=== PATIENT | female | born 1945 | race Caucasian/White ===

== ENCOUNTER 2016-08-11 15:49 | Emergency (ER) | payer BC, MEDICARE ==
--- NOTE | 2016-08-11 16:02 | EDM.PDOC ---
ED HPI GENERAL MEDICAL PROBLEM - General Chief Complaint: Neuro Symptoms/Deficits Stated Complaint: [facility] Time Seen by Provider: 08/11/16 15:55 Source of Information: Reports: Patient, EMS Notes Reviewed, Family History Limitations: Reports: No Limitations - History of Present Illness INITIAL COMMENTS - FREE TEXT/NARRATIVE: 71-year-old female reports that she was at her place of work this afternoon when she suddenly developed symptoms in her left upper extremity where her fingers would not do their normal tasks and the arm lost its coordination. She would reach for her hair for example in miss completely or hit herself in the face. It's unclear she spoke anybody and had any change in speech. She denied any visual acuity changes. She felt that perhaps her left leg was a little weak and a little off balance for a period of time. [facility]. Once EMS got there she states her symptoms suddenly seemed to improve. Symptoms would've lasted a good hour to an hour and a quarter then. Her previous similar history of TIA or stroke. She denies headache or any recent falls or closed head injuries. Onset: Today Onset Date: 08/11/16 Onset Time: 14:00 Duration: Minutes:, Resolved Prior to Arrival Location: Reports: Upper Extremity, Left, Lower Extremity, Left Quality: Reports: Other Severity: Moderate (Weakness and clumsiness.) Improves with: Reports: Other Worsens with: Reports: None (Condition improves spontaneously over the last 15 minutes.) Context: Reports: Other (Was at work when symptoms developed.). 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 Denies: Fever, Chills, Malaise, Fatigue, Night Sweats, Diaphoresis ( initially but is now improved.), Decreased Appetite, Weight Loss, Weight Gain HEENT: Reports: No Symptoms Respiratory: Reports: No Symptoms Cardiovascular: Reports: No Symptoms Endocrine: Reports: No Symptoms GI/Abdominal: Reports: No Symptoms : Reports: No Symptoms Musculoskeletal: Reports: No Symptoms Skin: Reports: No Symptoms Neurological: Reports: No Symptoms Psychiatric: Reports: No Symptoms Hematologic/Lymphatic: Reports: No Symptoms Immunologic: Reports: No Symptoms ED EXAM, NEURO - Physical Exam Exam: See Below Exam Limited By: No Limitations General Appearance: Alert, WD/WN, No Apparent Distress Eye Exam: Bilateral Eye: Normal Inspection Throat/Mouth: Normal Inspection, Normal Lips, Normal Oropharynx Head Exam: Atraumatic, Normocephalic Neck: Normal Inspection, Supple, Non-Tender, Full Range of Motion, Limited Range of Motion Respiratory/Chest: No Respiratory Distress, Lungs Clear, Normal Breath Sounds, No Accessory Muscle Use Cardiovascular: Normal Peripheral Pulses, Regular Rate, Rhythm, No Edema, No Gallop, No Murmur GI/Abdominal: Normal Bowel Sounds, Soft, Non-Tender, No Organomegaly, No Distention Neurological: Alert, Normal Mood/Affect, Normal Dorsiflexion, CN II-XII Intact, Normal Plantar Flexion, Normal Gait, No Motor/Sensory Deficits, Oriented x 3, Other (Motor power and tone are equal in both upper and lower extremities.). No : Abnormal Finger to Nose DTR: 1+: Bicep (R), Bicep (L), Patella (R), Patella (L), Achilles (R), Achilles (L) Back Exam: Normal Inspection, Full Range of Motion Extremities: Normal Inspection, Normal Range of Motion, Non-Tender, No Pedal Edema, Normal Capillary Refill Psychiatric: Normal Affect, Normal Mood Skin Exam: Warm, Dry, Intact, Normal Color, No Rash EKG INTERPRETATION EKG Date: 08/11/16 Time: 16:20 Rhythm: NSR Rate (beats/min): 76 Friant: normal P-wave: enlarged (Consider left atrial hypertrophy) QRS: other (Q waves V1 to V3 compatible with an old anteroseptal myocardial infarction.) ST-T: other (T-wave flattening in 1 and inverted in aVL. Slight ST segment depression in lead V6) Course - Vital Signs Last Recorded V/S: Last Vital Signs Temp 36.1 C 08/11/16 15:58 Pulse 76 08/11/16 17:04 Resp 16 08/11/16 15:58 BP 193/102 H 08/11/16 17:04 Pulse Ox 98 08/11/16 15:58 - Orders/Labs/Meds Orders: Active Orders 24 hr Category Date Time Status EKG Documentation Completion [RC] STAT Care 08/11/16 16:03 Active Ang Head [CT] Stat Exams 08/11/16 16:36 Taken Ang Neck [CT] Stat Exams 08/11/16 16:37 Taken Chest 1V Frontal [CR] Stat Exams 08/11/16 16:03 Taken Head wo Cont [CT] Routine Exams 08/11/16 16:08 Taken Enalaprilat [Vasotec IV] Med 08/11/16 18:37 Once 1.25 mg IVPUSH ONETIME ONE Sodium Chloride 0.9% [Saline Flush] Med 08/11/16 17:16 Active 10 ml FLUSH ONETIME PRN Medication Orders Sodium Chloride (Saline Flush) 10 ml FLUSH ONETIME PRN PRN Reason: Keep Vein Open Last Admin: 08/11/16 17:27 Dose: 10 ml Labs: Laboratory Tests 08/11/16 08/11/16 08/11/16 Range/Units 16:27 16:27 16:27 WBC 6.88 (3.98-10.04) K/mm3 RBC 4.98 (3.98-5.22) M/mm3 Hgb 16.1 H (11.2-15.7) gm/L Hct 46.4 H (34.1-44.9) % MCV 93.2 (79.4-94.8) fl MCH 32.3 H (25.6-32.2) pg MCHC 34.7 (32.2-35.5) g/dl RDW Std Deviation 44.5 (36.4-46.3) fL Plt Count 220 (182-369) K/mm3 MPV 9.9 (9.4-12.3) fl Neutrophils % (Manual) 66 H (40-60) % Band Neutrophils % 0 (0-10) % Lymphocytes % (Manual) 31 (20-40) % Atypical Lymphs % 0 % Monocytes % (Manual) 2 (2-10) % Eosinophils % (Manual) 1 (0.7-5.8) % Basophils % (Manual) 0 L (0.1-1.2) Platelet Estimate Adequate RBC Morph Comment Normal PT 10.4 (8.0-13.0) SECONDS INR 0.96 Sodium 140 (136-145) mEq/L Potassium 3.8 (3.5-5.1) mEq/L Chloride 104 (98-107) mEq/L Carbon Dioxide 26 (21-32) mEq/L Anion Gap 13.8 (5-15) BUN 19 H (7-18) mg/dL Creatinine 0.6 (0.55-1.02) mg/dL Est Cr Clr Drug Dosing 59.98 mL/min Estimated GFR (MDRD) > 60 (>60) mL/min BUN/Creatinine Ratio 31.7 H (14-18) Glucose 102 (83-115) mg/dL Calcium 8.9 (8.5-10.1) mg/dL Total Bilirubin 0.5 (0.2-1.0) mg/dL AST 26 (15-37) U/L ALT 46 (14-59) U/L Alkaline Phosphatase 84 (46-116) U/L Total Protein 7.8 (6.4-8.2) g/dl Albumin 4.1 (3.4-5.0) g/dl Globulin 3.7 gm/dL Albumin/Globulin Ratio 1.1 (1-2) Triglycerides 99 (<150) mg/dL Cholesterol 183 (<200) mg/dL LDL Cholesterol Direct 101 H* (<100) mg/dL HDL Cholesterol 71.0 H (40-59) mg/dL Meds: Medications Generic Name Dose Route Start Last Admin Trade Name Freq PRN Reason Stop Dose Admin Sodium Chloride 10 ml 08/11/16 17:16 08/11/16 17:27 Saline Flush FLUSH 10 ml ONETIME PRN Administration Keep Vein Open Discontinued Medications Generic Name Dose Route Start Last Admin Trade Name Freq PRN Reason Stop Dose Admin Aspirin 324 mg 08/11/16 16:35 08/11/16 16:39 Aspirin PO 08/11/16 16:36 324 mg ONETIME ONE Administration Iopamidol 100 ml 08/11/16 17:15 08/11/16 17:27 Isovue-370 (76%) IVPUSH 08/11/16 17:16 100 ml ONETIME ONE Administration Labetalol HCl 20 mg 08/11/16 16:49 08/11/16 17:04 Normodyne IVPUSH 08/11/16 16:50 20 mg ONETIME ONE Administration Protocol - Radiology Interpretation Free Text/Narrative:: 71-year-old female arrives in the ED program onset after [facility] symptoms. Patient reports that she was at work and suddenly noticed that her left hand would not work normally and that she had lost some coordination of her left arm as well. She then appreciated that the left leg was a little weak as well and seemed to be heavy-like piece of wood. It wouldn't listen to what she wanted to do. She denies any headache nausea vomiting no recent falls or closed head injuries. No history of stroke. Reveals her to be in sinus rhythm. Her symptoms resolved completely about 15 minutes before arriving in the ED. she is not a diabetic. She has no carotid bruits. She is in sinus rhythm. Neuro exam now is completely normal. Plan CT had to be done. Blood pressures noted to be markedly elevated upon arrival at 198/97. Will watch and see if this calms down with time.. Routine labs including cholesterol status ordered. - Re-Assessments/Exams Free Text/Narrative Re-Assessment/Exam: 08/11/16 16:40 CT of the head is within normal limits. Patient was up to the bathroom and feels no change in her gait or feeling of off balance. She will be given aspirin 324 mg chewed now. Plan to go ahead now with CT angiogram of the head and neck. 08/11/16 16:50 blood pressure remains elevated. Currently 200/98. It appears that she likely does have some essential hypertension that is thought not been diagnosed. Will give labetalol 20 mg IV. 08/11/16 18:37 blood pressure is improved to 167/88. I'm going to give her Vasotec or enalapril 1.25 mg IV now. Creatinine is 0.6 and her potassium is fine. In fact the labs are all normal with a total white count of 6.88 hemoglobin of 16.1 hematocrit of 46.4 platelets 220,000. Sodium 140 potassium 3.8. Portable 4 bicarbonate 26. And a gap is 13.6. Creatinine was 0.6. Coags are normal. LDL is 101 HDL is 71. She does not have a cholesterol problem. Her blood pressure may well cause some of her current symptoms today although she will still need to have an echocardiogram as an outpatient and bilateral ultrasounds of her carotid arteries. He has a rim of the neck shows calcification of plaque at the carotid bifurcations bilaterally left greater than the right. No significant carotid artery stenosis is identified in the vertebral arteries are patent bilaterally. CT CT angiogram of the brain reveals the circus of [place] to be unremarkable the anterior middle and posterior cerebral arteries are all patent bilaterally the distal vertebral and basilar arteries were patent as well. No aneurysms identified. 08/11/16 18:53 spoke with patient and at length about the findings today. It appears that she has essential hypertension that has gone on no distant untreated because she doesn't follow up with doctors very often. She has no family practice physician in town. I will therefore recommend Dr. Kellogg. I will have her make an appointment for about 2 weeks time so that her blood pressure can be assessed. I've asked her to have her blood pressure checked outside of the hospital setting and write the numbers down in the time and date over the next few weeks as well. I plan is to place her on amlodipine 10 mg once daily with lisinopril 10 mg once daily. It's hard to know how much of her hypertension today was generated by adrenaline and being scared of possible CVA. She needs a carotid ultrasound as an outpatient and an echocardiogram. First dose of amlodipine will be given by mouth in the hospital [facility]. Other meds will be started tomorrow morning. She will use 325 mg Rick aspirin twice daily for the next 3 weeks and then cut it down to 81 mg once daily. Departure - Departure Time of Disposition: 19:30 Disposition: Home, Self-Care 01 Condition: fair Clinical Impression: Uncontrolled hypertension TIA (transient ischemic attack) Qualifiers: Transient cerebral ischemia type: carotid artery syndrome (hemispheric) Qualified Code(s): G45.1 - Carotid artery syndrome (hemispheric) - Discharge Information Prescriptions: Lisinopril 10 mg PO DAILY #30 tablet amLODIPine [Norvasc] 10 mg PO BEDTIME #30 tablet Additional Instructions: Evaluation in the emergency department today in regards to development of acute weakness and clumsiness of the left arm and hand and probably mildly affecting the left leg. Somewhat occurred while is in the workplace. Symptoms lasted well over an hour and 15 minutes. They had resolved before you came to the ED as the neural exam then was completely normal. This indicates a transient ischemic attack or mild stroke. Complete investigations revealed no abnormalities of your heart. CT of the brain was normal CT angiogram done of the neck and brain revealed no abnormalities within the arterial system to deliver some blood to the brain. The one finding that stuck out was markedly elevated blood pressure at greater than 205 initially over 98. It is highly suspect that her blood pressure has gradually gone up over the last 6 months or year and has gone undiagnosed. Elevated blood pressure especially on the top number is on a huge risk factor for stroke development. You were treated in the ED with labetalol 20 mg IV and then subsequently Vasotec 1.25 mg IV. There also given amlodipine 10 mg orally before you were discharged. He needs to take a full Harshal's aspirin 325 mg twice daily for the next 3 weeks. You were given the first dose in the emergency department but should take 1 before bed tonight as well. After this 3 weeks or up you made cut back to 81 mg or baby aspirin once daily. Suggest follow-up with Dr. Kellogg at the family medicine unit in the hospital. The number to call is [phone] to arrange an appointment with him in about 2 weeks' time. Your blood pressure checked outside the hospital as we discussed and write down the date and time of day and the numbers. You need to take blood pressure medication lisinopril 10 mg in the morning and amlodipine 10 mg at bedtime for blood pressure control. Of course return to the hospital if you have any similar strokelike symptoms that occurred today. I will leave it u pto Dr Kellogg to arrange outpatient ultrasound of your carotid arteries and an echocardiogram to look for other potential sources of stroke. - My Orders Last 24 Hours: My Active Orders 08/11/16 16:03 EKG Documentation Completion [RC] STAT Chest 1V Frontal [CR] Stat 08/11/16 16:08 Head wo Cont [CT] Routine 08/11/16 16:36 Ang Head [CT] Stat 08/11/16 16:37 Ang Neck [CT] Stat 08/11/16 17:16 Sodium Chloride 0.9% [Saline Flush] 10 ml FLUSH ONETIME PRN 08/11/16 18:37 Enalaprilat [Vasotec IV] 1.25 mg IVPUSH ONETIME ONE - Assessment/Plan Last 24 Hours: My Active Orders 08/11/16 16:03 EKG Documentation Completion [RC] STAT Chest 1V Frontal [CR] Stat 08/11/16 16:08 Head wo Cont [CT] Routine 08/11/16 16:36 Ang Head [CT] Stat 08/11/16 16:37 Ang Neck [CT] Stat 08/11/16 17:16 Sodium Chloride 0.9% [Saline Flush] 10 ml FLUSH ONETIME PRN 08/11/16 18:37 Enalaprilat [Vasotec IV] 1.25 mg IVPUSH ONETIME ONE
[2016-08-11] MEDS ORDERED: Aspirin 81 MG Tab.Chew PO ONE (16:35)
[2016-08-11] MEDS ORDERED: Labetalol 100 MG/20 ML MDV IVPUSH ONE (16:49)
[2016-08-11] MEDS ORDERED: Iopamidol 755 Mg/ML 100 ML Bottle IVPUSH ONE (17:15)
[2016-08-11] MEDS ORDERED: Sodium Chloride 0.9% 10 ML Syringe FLUSH PRN (17:16)
[2016-08-11] MEDS ORDERED: Enalaprilat 1.25 MG/ML SDV IVPUSH ONE (18:37)
[2016-08-11] MEDS ORDERED: amLODIPine 5 MG Tab PO ONE (18:56)
[2016-08-11 19:05] VITALS: BP 167/83
[2016-08-11] MEDS ORDERED: amLODIPine 10 MG Tab PO SCH (21:00)
--- NOTE | 2016-08-12 09:37 | CT ---
CT angiogram of neck Technique: Multiple axial sections were obtained through the neck. Intravenous contrast was utilized. Multiple reconstructed images were obtained. Findings: Mild amount of calcified plaque noted within both carotid bulbs. Both common carotid arteries are patent from the aortic arch. No significant stenosis seen within the common carotid arteries. Right and left internal and external carotid arteries show no stenosis. Both vertebral arteries are patent from the aortic arch. Left vertebral artery is dominant over the right side. Impression: 1. Mild amount of calcified plaque within both carotid bulbs. 2. No areas of significant stenosis are seen on CT study of the neck. Diagnostic code #2 Agree with preliminary report issued by [email or web address] ([facility] preliminary report dictated on 08/11/16, 7:39 PM Central Time)
--- NOTE | 2016-08-12 09:37 | CT ---
CT angiogram of brain Technique: Multiple axial sections were obtained through the brain. Intravenous contrast was utilized. Multiple reconstructed images were obtained. Findings: Left vertebral artery is dominant over the right vertebral artery which is normal variant. Basilar artery is patent. Normal flow into both posterior cerebral arteries is noted. Carotid siphon appears to be patent. Normal contrast seen within the middle cerebral arteries on both sides. Anterior cerebral arteries appear within normal limits. No discrete findings of obstruction are seen. No discrete findings of aneurysm are seen. Impression: 1. No definite abnormality is seen on CT angiogram of brain. If patient has continued symptoms, MRI and MR angiogram exam could be considered. Diagnostic code #1 Agree with preliminary report issued by [facility] ([facility] preliminary report dictated on 08/11/16, 7:39 PM Central Time)
--- NOTE | 2016-08-12 09:37 | CR ---
Chest: Frontal view of the chest was obtained. Comparison: No previous study. Heart size is normal. Tortuous thoracic aorta is seen. Lungs are clear. Minimal scoliosis is noted within the spine. Impression: 1. Incidental findings. Nothing acute is identified on frontal chest x-ray. Diagnostic code #1
--- NOTE | 2016-08-12 09:54 | CT ---
Head CT Technique: Multiple axial sections through the brain were obtained. Intravenous contrast was not utilized. Comparison: No previous intracranial imaging. Findings: Ventricles along with basal cisterns and sulci over the convexities are within normal limits for the patient's age. No abnormal parenchymal densities are seen. No evidence of intracranial hemorrhage. No midline shift or mass effect is seen. Bone window settings were reviewed which show the visualized sinuses to appear clear. No calvarial abnormality is seen. Impression: 1. No acute intracranial abnormality is identified on noncontrast head CT study. Diagnostic code #1 MTDD
== END 2016-08-11 20:00 | disposition home or self-care (01) ==
LOC: JD.ED 15:49
DX: G45.1 Carotid artery syndrome (hemispheric) (principal); I10 Essential (primary) hypertension; Z79.899 Other long term (current) drug therapy
CPT/HCPCS: 36415; 70450; 70496; 70498; 71010; 80053; 82465; 83718; 83721; 84478; 85025; 85610; 93005; 96374; 96375; 99285; A9270; J7050; Q9967; 99284

== ENCOUNTER 2016-08-12 09:07 | Inpatient (IN) | payer BC, MEDICARE ==
[2016-08-12] MEDS ORDERED: Sodium Chloride 0.9% 10 ML Syringe FLUSH PRN (09:17)
--- NOTE | 2016-08-12 09:49 | CT ---
Head CT Technique: Multiple axial sections through the brain were obtained. Intravenous contrast was not utilized. Comparison: Previous head CT study of 08/11/16. Findings: Ventricles along the basal cisterns and sulci over the convexities appear within normal limits for the patient's age. No abnormal parenchymal densities are seen. No evidence of intracranial hemorrhage. No midline shift or mass effect is seen. Bone window settings were reviewed which shows the visualized sinuses to appear clear. No acute calvarial abnormality is seen. Impression: 1. No acute intracranial abnormality is identified. No appreciable change is seen from prior head CT exam. MRI could be considered to further evaluate if clinically needed. Diagnostic code #1
--- NOTE | 2016-08-12 10:53 | EDM.PDOC ---
ED HPI GENERAL MEDICAL PROBLEM - General Chief Complaint: Neurological Problem Stated Complaint: TIA Time Seen by Provider: 08/12/16 09:13 Source of Information: Reports: Patient History Limitations: Reports: No Limitations - History of Present Illness INITIAL COMMENTS - FREE TEXT/NARRATIVE: The patient presents with left arm weakness, left sided facial droop and trouble speaking. She woke up with these symptoms this morning. The last time know well was 9:30 pm last night. She is better now. She has no symptoms. She denies headache, chest pain, shortness of breath, abdominal pain, nausea or vomiting. She has no dysuria or diarrhea. She was seen here for similar complaints. Yesterday she had some trouble walking because of left leg weakness. Her symptoms resolved yesterday. Her blood pressure was high. She had a CT of her head, labs, CT angiogram of her head and neck. That all looked good. She had high blood pressure. She had a TIA and was put on something for blood pressure and follow up with Dr Kellogg. She has a family history of strokes. Onset: Sudden Duration: Hour(s): (6am) Location: Reports: Face, Upper Extremity, Left Severity: Moderate Improves with: Reports: None Worsens with: Reports: None Context: Reports: Activity Associated Symptoms: Reports: Weakness - Related Data Allergies Allergy/AdvReac Type Severity Reaction Status Date / Time No Known Allergies Allergy Verified 08/12/16 09:22 Home Meds: Home Meds Lisinopril 10 mg PO DAILY #30 tablet 08/11/16 [Rx] amLODIPine [Norvasc] 10 mg PO BEDTIME #30 tablet 08/11/16 [Rx] Past Medical History HEENT History: Reports: Cataract, Impaired Vision Other HEENT History: wears glasses [employer] History: Reports: Social & Family History - Tobacco Use Smoking Status *Q: Never Smoker - Caffeine Use Caffeine Use: Reports: Coffee - Recreational Drug Use Recreational Drug Use: No - Living Situation & Occupation Living situation: Reports: Occupation: Employed ED ROS GENERAL - Review of Systems Review Of Systems: See Below Constitutional: Reports: No Symptoms HEENT: Reports: No Symptoms Respiratory: Reports: No Symptoms Cardiovascular: Reports: No Symptoms Endocrine: Reports: No Symptoms GI/Abdominal: Reports: No Symptoms : Reports: No Symptoms Musculoskeletal: Reports: No Symptoms Skin: Reports: No Symptoms Neurological: Reports: Weakness (left arm and face and trouble spraking) ED EXAM, NEURO - Physical Exam Exam: See Below Exam Limited By: No Limitations General Appearance: Alert, No Apparent Distress Ears: Normal External Exam Nose: Normal Inspection Head Exam: Atraumatic, Normocephalic Neck: Normal Inspection Respiratory/Chest: No Respiratory Distress, Lungs Clear, Normal Breath Sounds Cardiovascular: Regular Rate, Rhythm, No Edema, No Murmur Neurological: Alert, No Motor/Sensory Deficits, Oriented x 3 Back Exam: Normal Inspection Extremities: Normal Inspection EKG INTERPRETATION EKG Date: 08/12/16 Time: 09:36 Rhythm: other (sinus bradycardia) Rate (beats/min): 57 [place]: normal P-wave: present QRS: normal ST-T: normal QT: normal Course - Vital Signs Last Recorded V/S: Last Vital Signs Temp 96.7 F 08/12/16 09:15 Pulse 74 08/12/16 09:15 Resp 14 08/12/16 09:15 BP 165/78 H 08/12/16 09:15 Pulse Ox 96 08/12/16 09:15 - Orders/Labs/Meds Orders: Active Orders 24 hr Category Date Time Status Blood Glucose Check, Bedside [RC] ONETIME Care 08/12/16 09:18 Active EKG 12 Lead [EKG Documentation Completion] [RC] STAT Care 08/12/16 09:36 Active Oxygen Therapy [] PRN Care 08/12/16 09:17 Active Peripheral IV Care [RC] . DIRECTED Care 08/12/16 09:18 Active Sodium Chloride 0.9% [Saline Flush] Med 08/12/16 09:17 Active 10 ml FLUSH ASDIRECTED PRN Peripheral IV Insertion Adult [OM.PC] Urgent Oth 08/12/16 09:17 Ordered Medication Orders Sodium Chloride (Saline Flush) 10 ml FLUSH ASDIRECTED PRN PRN Reason: Keep Vein Open Last Admin: 08/12/16 10:22 Dose: 10 ml Labs: Laboratory Tests 08/12/16 08/12/16 08/12/16 Range/Units 09:16 09:25 09:25 WBC 6.64 (3.98-10.04) K/mm3 RBC 4.98 (3.98-5.22) M/mm3 Hgb 16.1 H (11.2-15.7) gm/L Hct 46.6 H (34.1-44.9) % MCV 93.6 (79.4-94.8) fl MCH 32.3 H (25.6-32.2) pg MCHC 34.5 (32.2-35.5) g/dl RDW Std Deviation 45.3 (36.4-46.3) fL Plt Count 237 (182-369) K/mm3 MPV 10.0 (9.4-12.3) fl Neut % (Auto) 63.7 (34.0-71.1) % Lymph % (Auto) 26.1 (19.3-51.7) % [place] % (Auto) 8.3 (4.7-12.5) % Eos % (Auto) 1.2 (0.7-5.8) Baso % (Auto) 0.5 (0.1-1.2) % Neut # (Auto) 4.24 (1.56-6.13) K/mm3 Lymph # (Auto) 1.73 (1.18-3.74) K/mm3 [place] # (Auto) 0.55 H (0.24-0.36) K/mm3 Eos # (Auto) 0.08 (0.04-0.36) K/mm3 Baso # (Auto) 0.03 (0.01-0.08) K/mm3 PT 10.4 (8.0-13.0) SECONDS INR 0.96 APTT 27 (22-36) SECONDS Sodium (136-145) mEq/L Potassium (3.5-5.1) mEq/L Chloride (98-107) mEq/L Carbon Dioxide (21-32) mEq/L Anion Gap (5-15) BUN (7-18) mg/dL Creatinine (0.55-1.02) mg/dL Est Cr Clr Drug Dosing Estimated GFR (MDRD) (>60) mL/min BUN/Creatinine Ratio (14-18) Glucose (83-115) mg/dL POC Glucose 116 H (83-110) mg/dL Calcium (8.5-10.1) mg/dL Total Bilirubin (0.2-1.0) mg/dL AST (15-37) U/L ALT (14-59) U/L Alkaline Phosphatase (46-116) U/L Troponin I (0.00-0.056) ng/mL Total Protein (6.4-8.2) g/dl Albumin (3.4-5.0) g/dl Globulin gm/dL Albumin/Globulin Ratio (1-2) // Range/Units 09:25 WBC (3.98-10.04) K/mm3 RBC (3.98-5.22) M/mm3 Hgb (11.2-15.7) gm/L Hct (34.1-44.9) % MCV (79.4-94.8) fl MCH (25.6-32.2) pg MCHC (32.2-35.5) g/dl RDW Std Deviation (36.4-46.3) fL Plt Count (182-369) K/mm3 MPV (9.4-12.3) fl Neut % (Auto) (34.0-71.1) % Lymph % (Auto) (19.3-51.7) % [place] % (Auto) (4.7-12.5) % Eos % (Auto) (0.7-5.8) Baso % (Auto) (0.1-1.2) % Neut # (Auto) (1.56-6.13) K/mm3 Lymph # (Auto) (1.18-3.74) K/mm3 [place] # (Auto) (0.24-0.36) K/mm3 Eos # (Auto) (0.04-0.36) K/mm3 Baso # (Auto) (0.01-0.08) K/mm3 PT (8.0-13.0) SECONDS INR APTT (22-36) SECONDS Sodium 142 (136-145) mEq/L Potassium 3.9 (3.5-5.1) mEq/L Chloride 107 (98-107) mEq/L Carbon Dioxide 27 (21-32) mEq/L Anion Gap 11.9 (5-15) BUN 15 (7-18) mg/dL Creatinine 0.7 (0.55-1.02) mg/dL Est Cr Clr Drug Dosing TNP Estimated GFR (MDRD) > 60 (>60) mL/min BUN/Creatinine Ratio 21.4 H (14-18) Glucose 120 H (83-115) mg/dL POC Glucose (83-110) mg/dL Calcium 8.8 (8.5-10.1) mg/dL Total Bilirubin 0.8 (0.2-1.0) mg/dL AST 27 (15-37) U/L ALT 45 (14-59) U/L Alkaline Phosphatase 79 (46-116) U/L Troponin I < 0.017 (0.00-0.056) ng/mL Total Protein 7.5 (6.4-8.2) g/dl Albumin 3.8 (3.4-5.0) g/dl Globulin 3.7 gm/dL Albumin/Globulin Ratio 1.0 (1-2) Meds: Medications Generic Name Dose Route Start Last Admin Trade Name Freq PRN Reason Stop Dose Admin Sodium Chloride 10 ml 08/12/16 09:17 08/12/16 10:22 Saline Flush FLUSH 10 ml ASDIRECTED PRN Administration Keep Vein Open - Re-Assessments/Exams Free Text/Narrative Re-Assessment/Exam: 08/12/16 10:53 A stroke alert was called. The last time know well was 9:30pm last night. I ordered an EKG, labs, and CT of her head. Her EKG shows a NSR with no acute changes. Her labs look good. She has resolved her symptoms. I talked to Dr Adhikari and he agreed to the admission. I will order an MRI and MRA of the brain. Departure - Departure Time of Disposition: 11:00 Disposition: Admitted As Inpatient 64 Condition: fair Clinical Impression: TIA (transient ischemic attack) Qualifiers: Transient cerebral ischemia type: carotid artery syndrome (hemispheric) Qualified Code(s): G45.1 - Carotid artery syndrome (hemispheric) Hypertension Qualifiers: Hypertension type: essential hypertension Qualified Code(s): I10 - Essential ( primary) hypertension - Discharge Information Forms: ED Department Discharge - My Orders Last 24 Hours: My Active Orders 08/12/16 09:17 Oxygen Therapy [RC] PRN Sodium Chloride 0.9% [Saline Flush] 10 ml FLUSH ASDIRECTED PRN Peripheral IV Insertion Adult [OM.PC] Urgent 08/12/16 09:18 Blood Glucose Check, Bedside [RC] ONETIME Peripheral IV Care [RC] . DIRECTED 08/12/16 09:36 EKG 12 Lead [EKG Documentation Completion] [RC] STAT - Assessment/Plan Last 24 Hours: My Active Orders 08/12/16 09:17 Oxygen Therapy [RC] PRN Sodium Chloride 0.9% [Saline Flush] 10 ml FLUSH ASDIRECTED PRN Peripheral IV Insertion Adult [OM.PC] Urgent 08/12/16 09:18 Blood Glucose Check, Bedside [RC] ONETIME Peripheral IV Care [RC] . DIRECTED 08/12/16 09:36 EKG 12 Lead [EKG Documentation Completion] [RC] STAT
--- NOTE | 2016-08-12 12:33 | PCM.HP ---
H&P History of Present Illness - General Date of Service: 08/12/16 Admit Problem/Dx: Follow up Source of Information: Patient, Family, Old Records, Provider, RN Notes Reviewed History Limitations: Reports: Physical Impairment - History of Present Illness Initial Comments - Free Text/Narative: This is a 71 year old pleasant elderly white female with past medical history of hypertension who comes in with complains of left arm weakness, left-sided facial droop and trouble speaking that woke her up this morning. She was initially seen in ED yesterday for similar complaints. Head CT scan head CTA and neck CTA showed no acute intracranial abnormality. However she was found to be in malignant hypertension with systolic blood pressure as high as 200 mmHg and diastolic blood pressure as high as 102 mmHg. She was treated medically before she was discharged to home. This morning patient woke up with similar complaints so she comes back to the emergency department for further evaluation. Patient carries no past medical history of stroke. Her initial workup today in the emergency department shows a CBC remarkable for hemoglobin 16.1 and hematocrit 46.6. Her chemistry is significant for glucose of 120. Troponin 1 is negative. EKG shows sinus bradycardia. Head CT scan without contrast report reads no acute intra-cranial abnormality. Patient is being admitted for medical management TIA/stroke. Some other symptoms have resolved upon presentation to the floor. She is full code. 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 Denies: Fever, Chills, Malaise, Fatigue HEENT: Denies: Dysphasia Pulmonary: Denies: Shortness of Breath Cardiovascular: Denies: Chest Pain, Palpitations, Dyspnea on Exertion Gastrointestinal: Denies: Abdominal Pain, Nausea, Vomiting Genitourinary: Reports: No Symptoms Musculoskeletal: Reports: Other (weakness on left arm) Skin: Reports: No Symptoms Psychiatric: Denies: Depression, Anxiety, Hallucinations Neurological: Reports: Weakness. Denies: Confusion, Dizziness, Headache, Numbness, Paresthesia, Seizure, Syncope, Tingling, Tremors, Trouble Speaking, Difficulty Walking, Change in Speech, Gait Disturbance Hematologic/Lymphatic: Reports: No Symptoms Immunologic: Reports: No Symptoms Exam - Exam Exam: See Below - Vital Signs Vital Signs: Last Vital Signs Temp 35.9 C 08/12/16 09:15 Pulse 74 08/12/16 09:15 Resp 14 08/12/16 09:15 BP 165/78 H 08/12/16 09:15 Pulse Ox 100 08/12/16 09:20 Weight: 75.75 kg - Exam General: Alert, Oriented, Cooperative, Mild Distress HEENT: Conjunctiva Clear, EACs Clear, EOMI, Hearing Intact, Mucosa Moist & [place] , Nares Patent, Normal Nasal Septum, Posterior Pharynx Clear, Pupils Equal, Pupils Reactive, TMs Clear Neck: Supple, Trachea Midline, +2 Carotid Pulse wo Bruit, Full Range of Motion Lungs: Clear to Auscultation, Normal Respiratory Effort Cardiovascular: Regular Rate, Regular Rhythm Abdomen: Normal Bowel Sounds, Soft. No: Organomegaly, Tenderness (Female) Exam: Deferred Rectal (Female) Exam: Deferred Back Exam: Normal Inspection, Decreased Range of Motion Extremities: Normal Inspection, Normal Pulses Peripheral Pulses: 2+: Posterior Tibial (L), Posterior Tibial (R), Dorsalis Pedis (L), Dorsalis Pedis (R) Skin: Warm, Dry, Intact Neurological: Normal Gait, Sensation Intact. No: Strength Equal Bilateral Neuro Extensive - Mental Status: Oriented x3, Normal Cognition, Memory Intact Neuro Extensive - Motor, Sensory, Reflexes: Other (left arm weakness). No: Abnormal Gait, Ataxia, Dysarthria, Expressive Aphasia Psychiatric: Alert, Normal Affect, Normal Mood - Patient Data Result Diagrams: 08/12/16 09:25 08/12/16 09:25 EKG INTERPRETATION EKG Date: 08/12/16 Time: 09:36 Rhythm: Other (Sinus Bradycardia) Rate (Beats/Min): 57 [place]: Normal P-Wave: Present QRS: Normal ST-T: Normal QT: Normal Comparison: Change From Previous EKG *Q Meaningful Use (ADM) - VTE *Q VTE Criteria *Q: - Stroke *Q Stroke Criteria *Q: - AMI *Q AMI Criteria *Q: Problem List Initiated/Reviewed/Updated: Yes Orders Last 24hrs: Medication Orders Sodium Chloride (Saline Flush) 10 ml FLUSH ASDIRECTED PRN PRN Reason: Keep Vein Open Last Admin: 08/12/16 10:22 Dose: 10 ml Assessment/Plan Comment:: Assessment/Plan: Acute: Stroke - Was found to be in Malignant Hypertension - Complaints of left arm weakness, left sided facial droop and trouble speaking - Was seen in ED yesterday with similar complaints - Woke up this am with similar episode - Symptoms resolving but still has some heaviness on left arm - Repeat Head CT scan report reads no acute intra-cranial abnormality - Brain MRI: Small acute diffusion abnormality within the posterior right basal ganglia extending into the centrum semi-ovale. Minimal increased signal on the FLARE sequence seen within this area and findings are compatible with early irreversible small infarct. Small areas of increased signal within the periventricular and subcortical white matter which most likely represents small vessel ischemic demyelination change given the patient's age. - Head/Neck MRA: No abnormality identified. No significant change seen from previous CT angiogram the brain - 2D echo and Lipid panel - Control blood pressure - Secondary Stroke Prevention: ASA, PT/OT and +/- Statin with abnormal lipid panel Malignant Hypertension - SBP was in the 200 ranges - Currently controlled - Continue home meds - Low salt diet Sinus Bradycardia By EKG - Received IV Labetolol yesterday - Currently not on BB or CBB - Telemetry and will monitor Dyslipidemia - Trig 99, Chol 183, LDL 101, and HDL 71 - LSM and Low Chol diet - Start statin since she just had a stroke Chronic: HTN Plan: Admit to the floor with Tele Routine AM Labs Resume Home Meds PT/OT consult SW/CM for d/c planning Additional orders as above Code status: 1
[2016-08-12] MEDS ORDERED: Promethazine 12.5 MG in Sodium Chloride 0.9% 50 ML IV PRN (12:37)
[2016-08-12] MEDS ORDERED: Ondansetron 4 MG/2 ML SDV IV PRN (12:37)
[2016-08-12] MEDS ORDERED: LORazepam 2 MG/ML MDV IV PRN (12:37)
[2016-08-12] MEDS ORDERED: Acetaminophen 325 MG Tab PO PRN (12:37)
[2016-08-12] MEDS ORDERED: Bisacodyl 5 MG Tab PO PRN (12:37)
[2016-08-12] MEDS ORDERED: Polyethylene Glycol 3350 Powder 17 GM Packet PO PRN (12:37)
[2016-08-12] MEDS ORDERED: Temazepam 15 MG Cap PO PRN (12:37)
[2016-08-12] MEDS ORDERED: Acetaminophen/HYDROcodone 325-5 MG Tab PO PRN (12:37)
[2016-08-12] MEDS ORDERED: Docusate Sodium 100 MG Cap PO PRN (12:37)
[2016-08-12] MEDS ORDERED: Albuterol/Ipratropium 3.0-0.5 MG/3 ML Neb Soln NEB PRN (12:37)
[2016-08-12] MEDS ORDERED: HYDROmorphone 0.5 MG/0.5 ML Syringe IVPUSH PRN (12:37)
--- NOTE | 2016-08-12 14:16 | MR ---
MR angiogram of brain Technique: MR angiogram study was performed centered to the [place]. Multiple MIP images were obtained in multiple projections. Comparison: Previous CT angiogram study of 08/11/16. Findings: Basilar artery and posterior cerebral arteries appear within normal limits. Carotid siphon appears within normal limits. Middle cerebral artery and anterior cerebral arteries are normal. No focal areas of stenosis or occlusion is seen. No aneurysm is identified. Impression: 1. No abnormality is identified on MR angiogram study centered at the [place]. No significant change is seen from previous CT angiogram of the brain. Diagnostic code #1
--- NOTE | 2016-08-12 14:37 | MR ---
MRI brain Technique: T1 sagittal; T2, T1, T2 FLAIR and diffusion axial; T1 FLAIR coronal images were obtained through the brain. Comparison: Previous head CT study performed earlier on the same day (9:29 AM). Ventricles along with basal cisterns and sulci over the convexities appear within normal limits for the patient's age. Normal signal void is seen within the major cerebral arteries within the skull base. Multiple areas of increased signal are noted within the subcortical and periventricular white matter which given the patient's age is most likely due to small vessel ischemic demyelination change. Small area of acute diffusion abnormality is identified within the posterior right basal ganglia extending into the centrum semi-ovale which shows minimal increased signal on the FLAIR sequence compatible with early small irreversible infarct. No other abnormal areas of diffusion are seen. No midline shift or mass effect is identified. Impression: 1. Small acute diffusion abnormality within the posterior right basal ganglia extending into the centrum semi-ovale. Minimal increased signal on the FLAIR sequence seen within this area and findings are felt compatible with early irreversible small infarct. 2. Multiple areas of increased signal within the periventricular and subcortical white matter which most likely represents small vessel ischemic demyelination change given the patient's age. Diagnostic code #3
--- NOTE | 2016-08-12 15:45 | US ---
Carotid ultrasound: Duplex and color flow imaging was obtained of the carotid arteries. Small amount of plaque identified within both carotid bulbs. Velocity measurements Right side: CCA has a peak systolic velocity of 0.84 m/s. ICA has a peak systolic velocity of 0.66 m/s and peak end-diastolic velocity of 0.17 m/s. ECA has a peak systolic velocity of 0.67 m/s. Vertebral artery has a peak systolic velocity of 0.40 m/s. ICA/CCA ratio 0.79. Left side: CCA has a peak systolic velocity of 0.83 m/s. ICA has a peak systolic velocity of 0.66 m/s and peak end-diastolic velocity of 0.17 m/s. ECA has a peak systolic velocity of 0.80 m/s. Vertebral artery has a peak systolic velocity of 0.41 m/s. ICA/CCA ratio is 0.8. Impression: 1. Small amount of plaque within both carotid bulbs. 2. Velocity measurements are within normal limits. Diagnostic code #2
[2016-08-12] MEDS ORDERED: amLODIPine 10 MG Tab PO SCH (21:00)
[2016-08-12] MEDS ORDERED: Simvastatin 20 MG Tab PO SCH (21:00)
[2016-08-13] MEDS ORDERED: Enoxaparin 40 MG/0.4 ML Syringe SUBCUT SCH (09:00)
[2016-08-13] MEDS ORDERED: Lisinopril 10 MG Tab PO SCH ×2 (09:00)
--- NOTE | 2016-08-13 11:09 | PCM.DCSUM1 ---
Discharge Summary - Hospital Course Brief History: This is a 71 year old pleasant elderly white female with past medical history of hypertension who comes in with complains of left arm weakness , left-sided facial droop and trouble speaking that woke her up this morning; was admitted for evaluation and medical treatment of Stroke. - Discharge Data Discharge Date: 08/13/16 Discharge Disposition: Home, Self-Care 01 Condition: Good - Discharge Diagnosis/Problem(s) (1) Stroke SNOMED Code(s): 515928530 ICD Code: I63.9 - CEREBRAL INFARCTION, UNSPECIFIED Status: Acute Qualifiers: CVA mechanism: unspecified Qualified Code(s): I63.9 - Cerebral infarction, unspecified (2) Dyslipidemia SNOMED Code(s): 878124242 ICD Code: E78.5 - HYPERLIPIDEMIA, UNSPECIFIED Status: Acute (3) Sinus bradycardia SNOMED Code(s): 06028750 ICD Code: R00.1 - BRADYCARDIA, UNSPECIFIED Status: Resolved (4) Uncontrolled hypertension SNOMED Code(s): 60426332 ICD Code: I10 - ESSENTIAL (PRIMARY) HYPERTENSION Status: Chronic - Patient Summary/Data Operative Procedure(s) Performed: None Complications: None Consults: Consultations 08/12/16 12:49 Consult to Case Management [CONS] Routine Consult to Gauntlet Pairer [CONS] Routine Consult to Spiritual Care [CONS] Routine OT Evaluation and Treatment [CONS] Routine PT Evaluation and Treatment [CONS] Routine Hospital Course: She was primarily admitted in for medical evaluation and management of stroke. She was initially seen in the emergency department and felt to have TIA. However she woke up the following day with persistence of her initial symptoms so she came back to the emergency department for further medical management. A repeat of her head CT scan showed no acute intra-cranial abnormality. Her head and neck MRA showed no acute intracranial abnormality but her brain MRI showed small acute diffusion abnormality at the right posterior basal ganglia suggestive of early irreversible infarct. The rest of her stroke imaging studies revealed no acute abnormal findings. On this admission the patient was placed on stroke protocol with PT/OT, aspirin , statin, and most importantly control of her malignant hypertension. No TPA was a given as it was not indicated. However her neurologic symptoms slowly improved. And on the day of discharge, most of her deficits have resolved except some lingering right arm weakness. Her hospital course was fairly uncomplicated. However she was found to have abnormal lipids panel. Given that she just had a stroke, we decided that she be started on low-dose anticholesterol drug with low cholesterol diet. On the day of discharge, she was counseled on lifestyle modifications to include regular exercise, eating proper diet and maintaining ideal weight. Patient is now stable for discharge. She will be prescribed with Pravachol for dyslipidemia. She is to continue with her daily aspirin and blood pressure medications that were initially prescribed to her in the emergency department. She is check her blood pressure as directed and show her log to her family doctor on her follow up appointment in 1-2 weeks. She was further advised to come back or seek immediate care should her symptoms persist or get worse. The patient expressed understanding and in agreement with the plans as discussed. Above all questions were answered. - Patient Instructions Diet: Heart Healthy Diet, Usual Diet as Tolerated Activity: As Tolerated Driving: Do Not Drive Showering/Bathing: May Shower Notify Provider of: Fever, Increased Pain, Nausea and/or Vomiting Other/Special Instructions: - Please take all medications as directed. - Please check and log your blood pressure at last twice a day and three times a week. Show your log to your family doctor on your follow up appointment. - Consider lifestyle modifications: exercise regularly, eat properly with low cholesterol diet, and weight loss. - Follow up with your doctor in 1-2 weeks - Discharge Plan Prescriptions/Med Rec: Pravastatin Sodium [Pravachol] 20 mg PO DAILY #30 tablet Home Medications: Home Meds Lisinopril 10 mg PO DAILY #30 tablet 08/11/16 [Rx] amLODIPine [Norvasc] 10 mg PO BEDTIME #30 tablet 08/11/16 [Rx] Aspirin 325 mg PO DAILY 08/13/16 [History] Pravastatin Sodium [Pravachol] 20 mg PO DAILY #30 tablet 08/13/16 [Rx] Patient Handouts: Fat and Cholesterol Restricted Diet, Transient Ischemic Attack, [id number], Hypertension, [id number] Referrals: Geri Kellogg [Physician] - 08/19/16 9:00 am (if this appt. time does not work please call and reschedule. This appt. is at the medical clinic at [facility] arrive 15 minutes howard to register.) - Discharge Summary/Plan Comment DC Time >30 min.: Yes (45 mins) Discharge Summary/Plan Comment: Discharge to Home - General Info Date of Service: 08/13/16 Admission Dx/Problem (Free Text: Follow up Subjective Update: Follow Up Functional Status: Reports: pain controlled, tolerating diet, ambulating, urinating. Denies: new symptoms - Review of Systems General: Reports: Weakness (left arm). Denies: Fever, Fatigue, Malaise, Chills HEENT: Reports: no symptoms. Denies: contact lenses Pulmonary: Denies: shortness of breath Cardiovascular: Denies: Chest Pain, Palpitations, Dyspnea on Exertion, Lightheadedness Gastrointestinal: Denies: Abdominal pain, Nausea, Vomiting Genitourinary: Reports: no symptoms Musculoskeletal: Reports: no symptoms Skin: Denies: cyanosis, jaundice, mottled, rash Neurological: Denies: Confusion, Dizziness, Headache, Numbness, Paresthesia, Seizure, Syncope, Tingling, Tremors, Trouble Speaking, Difficulty Walking, Change in Speech, Gait Disturbance Psychiatric: Denies: depression, anxiety, agitation, cravings, hallucinations Systems Review Comment: No overnight or acute issues. She has no new complaints. She still has left arm weakness. Her blood pressures have improved. She no longer has low heart rate. - Patient Data Vitals - Most Recent: Last Vital Signs Temp 36.3 C 08/13/16 08:00 Pulse 66 08/13/16 08:00 Resp 18 08/13/16 08:00 BP 158/66 H 08/13/16 08:00 Pulse Ox 95 08/13/16 08:00 Weight - Most Recent: 74.48 kg I&O - Last 24 hours: Intake & Output 08/12/16 08/13/16 08/13/16 22:59 06:59 14:59 Intake Total 460 450 Output Total 850 Balance 460 -400 Lab Results - Last 24 hrs: Laboratory Results - last 24 hr 08/13/16 08/13/16 Range/Units 05:14 05:14 WBC 6.37 (3.98-10.04) K/mm3 RBC 4.69 (3.98-5.22) M/mm3 Hgb 15.1 (11.2-15.7) gm/L Hct 44.1 (34.1-44.9) % MCV 94.0 (79.4-94.8) fl MCH 32.2 (25.6-32.2) pg MCHC 34.2 (32.2-35.5) g/dl RDW Std Deviation 45.1 (36.4-46.3) fL Plt Count 227 (182-369) K/mm3 MPV 10.2 (9.4-12.3) fl Neut % (Auto) 55.4 (34.0-71.1) % Lymph % (Auto) 30.1 (19.3-51.7) % [place] % (Auto) 11.6 (4.7-12.5) % Eos % (Auto) 2.2 (0.7-5.8) Baso % (Auto) 0.5 (0.1-1.2) % Neut # (Auto) 3.53 (1.56-6.13) K/mm3 Lymph # (Auto) 1.92 (1.18-3.74) K/mm3 [place] # (Auto) 0.74 H (0.24-0.36) K/mm3 Eos # (Auto) 0.14 (0.04-0.36) K/mm3 Baso # (Auto) 0.03 (0.01-0.08) K/mm3 Sodium 141 (136-145) mEq/L Potassium 3.9 (3.5-5.1) mEq/L Chloride 108 H (98-107) mEq/L Carbon Dioxide 25 (21-32) mEq/L Anion Gap 11.9 (5-15) BUN 14 (7-18) mg/dL Creatinine 0.6 (0.55-1.02) mg/dL Est Cr Clr Drug Dosing 66.05 mL/min Estimated GFR (MDRD) > 60 (>60) mL/min BUN/Creatinine Ratio 23.3 H (14-18) Glucose 115 (83-115) mg/dL Calcium 8.5 (8.5-10.1) mg/dL Magnesium 2.0 (1.8-2.4) mg/dl Med Orders - Current: Current Medications Acetaminophen (Tylenol) 650 mg PO Q4H PRN PRN Reason: Pain (Mild 1-3)/fever Last Admin: 08/12/16 21:41 Dose: 650 mg Hydrocodone Bitart/Acetaminophen ([place] 325-5 Mg) 1 tab PO Q4H PRN PRN Reason: Pain (moderate 4-6) Albuterol/Ipratropium (Duoneb 3.0-0.5 Mg/3 Ml) 3 ml NEB Q4H PRN PRN Reason: Shortness Of Breath/wheezing Amlodipine Besylate (Norvasc) 10 mg PO BEDTIME [facility] Last Admin: 08/12/16 21:08 Dose: 10 mg Aspirin (Ecotrin) 325 mg PO DAILY FRANCHESCA Bisacodyl (Dulcolax) 5 mg PO DAILY PRN PRN Reason: Constipation Docusate Sodium (Colace) 100 mg PO BID PRN PRN Reason: Constipation Enoxaparin Sodium (Lovenox) 40 mg SUBCUT DAILY [facility] Hydromorphone HCl (Dilaudid) 0.25 mg IVPUSH Q2H PRN PRN Reason: Pain (severe 7-10) Promethazine HCl 12.5 mg/ (Sodium Chloride) 50.5 mls @ 100 mls/hr IV Q6H PRN PRN Reason: Nausea/Vomiting Lisinopril (Prinivil) 10 mg PO DAILY [facility] Lorazepam (Ativan) 0.5 mg IV Q6H PRN PRN Reason: Anxiety Ondansetron HCl (Zofran) 4 mg IV Q6H PRN PRN Reason: Nausea/Vomiting Polyethylene Glycol (Miralax) 17 gm PO DAILY PRN PRN Reason: Constipation Senna/Docusate Sodium (Senna Plus) 1 tab PO BID PRN PRN Reason: Constipation Simvastatin (Zocor) 20 mg PO BEDTIME [facility] Last Admin: 08/12/16 21:08 Dose: 20 mg Sodium Chloride (Saline Flush) 10 ml FLUSH ASDIRECTED PRN PRN Reason: Keep Vein Open Last Admin: 08/12/16 10:22 Dose: 10 ml Temazepam (Restoril) 15 mg PO BEDTIME PRN PRN Reason: Sleep - Exam General: Reports: alert, oriented, cooperative, no acute distress HEENT: Reports: Pupils equal, Pupils reactive, EOMI, Mucous membr. moist/pink Neck: Reports: supple, trachea midline, no JVD, no thyromegaly Lungs: Reports: Clear to auscultation, Normal respiratory effort Cardiovascular: Reports: Regular Rate, Regular Rhythm Abdomen: Reports: bowel sounds present, soft, no tenderness, no distension (Female) Exam: Deferred Rectal (Female) Exam: Deferred Back Exam: Reports: Normal Inspection, Decreased Range of Motion Extremities: Reports: no edema, normal pulses, no tenderness/swelling, no clubbing, no cyanosis, no calf tenderness, calf tenderness Skin: Reports: warm, dry, intact Neurological: Reports: no new focal deficit, other (persistent left arm weakness ) Psy/Mental Status: Reports: alert, normal affect, normal mood *Q Meaningful Use (DIS) - VTE *Q VTE Criteria *Q: - Stroke *Q Stroke Criteria *Q: - AMI *Q AMI Criteria *Q:
[2016-08-13 14:23] VITALS: BP 157/68
[2016-08-14] MEDS ORDERED: Aspirin 325 MG Tab.EC PO SCH (09:00)
== END 2016-08-13 17:45 | disposition home or self-care (01) | DRG 45 ==
LOC: JD.ED 09:07 → JD.MS 12:06
PROVIDERS: ADMIT Internal Medicine; ATTEND Internal Medicine
DX: I63.9 Cerebral infarction, unspecified (principal); E78.5 Hyperlipidemia, unspecified; R00.1 Bradycardia, unspecified; I10 Essential (primary) hypertension; Z79.899 Other long term (current) drug therapy
CPT/HCPCS: 36415; 70450; 70450-26; 70544; 70544-26; 70551; 70551-26; 80048; 80053; 82962; 83735; 84484; 85025; 85610; 85730; 93005; 93306; 93880; 93880-26; 97161-GP; 97165-GO; 99284; 99285-25; A9270-GY; J1650; J7050

== ENCOUNTER 2019-11-01 07:20 | Observation (INO) | payer MEDICARE, OTHER ==
[~2019-11-01 07:20] MED LIST: Lactated Ringers 1,000 ML IV SCH; Lidocaine 1%/Sod Bicarbonate in NS 8.4% 1 ML Syringe IDERM PRN; Sodium Chloride 0.9% 10 ML Syringe FLUSH PRN
[2019-11-01] MEDS ORDERED: Lidocaine 1% with EPINEPHrine 1:100,000 20 ML MDV ONE (07:25)
[2019-11-01] MEDS ORDERED: Sodium Chloride 0.9% 50 ML SDV ONE (07:26)
--- NOTE | 2019-11-01 07:56 | PCM.PREANE ---
Preanesthetic Assessment - Procedure Proposed Procedure: TVH with BSO A&P repair , perineoplasty, mid-urethral sling - Anesthesia/Transfusion/Family Hx Anesthesia History: Prior Anesthesia Without Reaction Family History of Anesthesia Reaction: No Transfusion History: No Prior Transfusion(s) - Review of Systems General: No Symptoms Pulmonary: No Symptoms Cardiovascular: No Symptoms Gastrointestinal: No Symptoms Neurological: Numbness (in fingers at times), Weakness ("from a stroke a year and a half ago") Other: Reports: Thyroid Problems ("at times I have thyroid pain"), Neck Pain - Physical Assessment NPO Status Date: 10/31/19 NPO Status Time: 18:30 Vital Signs: Last Vital Signs Temp 36.3 C 11/01/19 07:25 Pulse 78 11/01/19 07:25 Resp 16 11/01/19 07:25 BP 129/74 11/01/19 07:25 Pulse Ox 95 11/01/19 07:25 Height: 1.55 m Weight: 65.317 kg ASA Class: 3 Mental Status: Alert & Oriented x3 Airway Class: Mallampati = 1 Dentition: Reports: Partial, Broken Tooth/Teeth Thyro-Mental Finger Breadths: 3 Mouth Opening Finger Breadths: 3 ROM/Head Extension: Full Lungs: Clear to Auscultation, Normal Respiratory Effort Cardiovascular: Regular Rate, Regular Rhythm - Lab Values: Laboratory Last Values COVID-19 PCR Not detected (NOT DETECT) 10/28/19 08:30 - Allergies Allergies/Adverse Reactions: Allergies Allergy/AdvReac Type Severity Reaction Status Date / Time No Known Allergies Allergy Verified 10/31/19 15:57 - Blood Blood Available: Yes Product(s) Available: PRBC - Anesthesia Plan Pre-Op Medication Ordered: None - Acknowledgements Anesthesia Type Planned: General Anesthesia Pt an Appropriate Candidate for the Planned Anesthesia: Yes Alternatives and Risks of Anesthesia Discussed w Pt/Guardian: Yes Pt/Guardian Understands and Agrees with Anesthesia Plan: Yes PreAnesthesia Questionnaire HEENT History: Reports: Cataract, Impaired Vision Other HEENT History: wears glasses Cardiovascular History: Reports: High Cholesterol, Hypertension, [place] Respiratory History: Reports: Other (See Below) Other Respiratory History: cough Gastrointestinal History: Reports: None Genitourinary History: Reports: UTI, Recurrent, Other (See Below) Other Genitourinary History: cystocele, rectocele, pelvic prolapse [employer] History: Reports: , Spontaneous Other OB/BYN History: 7 children. 3 miscarriage. cervical polyp, vaginal atrophy/discharge/odor Musculoskeletal History: Reports: Other (See Below) Other Musculoskeletal History: bilateral hip pain, low back pain, left thumb contusion Neurological History: Reports: TIA Psychiatric History: Reports: None Endocrine/Metabolic History: Reports: Hypothyroidism, Vitamin D Deficiency, Other (See Below) Other Endocrine/Metabolic History: enlarged thyroid, thyroid pain Hematologic History: Reports: None Immunologic History: Reports: None Oncologic (Cancer) History: Reports: None Dermatologic History: Reports: None - Infectious Disease History Infectious Disease History: Reports: None - Past Surgical History Head Surgeries/Procedures: Reports: None HEENT Surgical History: Reports: Cataract Surgery Cardiovascular Surgical History: Reports: None Respiratory Surgical History: Reports: None GI Surgical History: Reports: None Female Surgical History: Reports: D&C Male Surgical History: Reports: None Neurological Surgical History: Reports: None Musculoskeletal Surgical History: Reports: Hip Replacement Oncologic Surgical History: Reports: None Dermatological Surgical History: Reports: None - SUBSTANCE USE Smoking Status *Q: Never Smoker Tobacco Use Within Last Twelve Months: No Second Hand Smoke Exposure: No Days Per Week of Alcohol Use: 1 Number of Drinks Per Day: 0 Total Drinks Per Week: 0 Recreational Drug Use History: No - HOME MEDS Home Medications: Home Meds Aspirin 81 mg PO DAILY 10/31/19 [History] Chlorthalidone 12.5 mg PO DAILY 10/31/19 [History] Cholecalciferol (Vitamin D3) [Vitamin D3] 5,000 unit PO DAILY 10/31/19 [History] Cyanocobalamin (Vitamin B-12) [Vitamin B-12] 1,000 mcg PO DAILY 10/31/19 [History] Multivit-Min/Iron/Folic/Nca995 [Hair, Skin and Nails Tablet] 1 tab PO DAILY 10/31/19 [History] Turmeric 400 mg PO DAILY 10/31/19 [History] Ubidecarenone [Coq-10] 100 mg PO DAILY 10/31/19 [History] amLODIPine [Norvasc] 5 mg PO DAILY 10/31/19 [History] estradioL [Estrace 0.01% Vaginal Crm] 1 dose VAG ASDIRECTED 10/31/19 [History] - CURRENT (IN HOUSE) MEDS Current Meds: Current Medications Lactated Ringer's (Ringers, Lactated) 1,000 mls @ 125 mls/hr IV ASDIRECTED FRANCHES[facility] Stop: 11/01/19 23:00 Lidocaine/Sodium Bicarbonate (Buffered Lidocaine 1% In Ns 8.4%) 0.25 ml IDERM ONETIME PRN PRN Reason: Prior to IV Start Stop: 11/01/19 18:00 Sodium Chloride (Saline Flush) 10 ml FLUSH ASDIRECTED PRN PRN Reason: Keep Vein Open Stop: 11/01/19 18:00 Discontinued Medications Lidocaine/Epinephrine (Xylocaine 1% With Epinephrine 1:100,000) Confirm Administered Dose 20 ml .ROUTE .STK-MED ONE Stop: 11/01/19 07:26 Sodium Chloride (Normal Saline) Confirm Administered Dose 50 ml .ROUTE .STK-MED ONE Stop: 11/01/19 07:27
[2019-11-01] MEDS ORDERED: Rocuronium 50 MG/5 ML Vial ONE (08:05)
[2019-11-01] MEDS ORDERED: Ondansetron 4 MG/2 ML SDV ONE (08:05)
[2019-11-01] MEDS ORDERED: fentaNYL 250 MCG/5 ML SDV ONE (08:06)
[2019-11-01] MEDS ORDERED: Propofol 200 MG/20 ML SDV ONE (08:06)
[2019-11-01] MEDS ORDERED: Lidocaine 1% 4 ML ONE (08:07)
[2019-11-01] MEDS ORDERED: Ketorolac 30 MG/ML SDV ONE (08:07)
[2019-11-01] MEDS ORDERED: HYDROmorphone 1 MG/ML Syringe ONE (08:49)
[2019-11-01] MEDS ORDERED: Dexamethasone 4 MG/ML 5 ML MDV ONE (09:17)
[2019-11-01] MEDS ORDERED: Lactated Ringers 1,000 ML ONE (09:19)
[2019-11-01] MEDS ORDERED: Ondansetron 4 MG/2 ML SDV IVPUSH PRN (10:32)
[2019-11-01] MEDS ORDERED: Acetaminophen/oxyCODONE 325-5 MG Tab PO PRN (10:32)
[2019-11-01] MEDS ORDERED: fentaNYL 100 MCG/2 ML SDV IVPUSH PRN (10:39)
--- NOTE | 2019-11-01 10:40 | PCM.POSTAN ---
POST ANESTHESIA ASSESSMENT - MENTAL STATUS Mental Status: Alert, Oriented - VITAL SIGNS Vital Signs: Last Vital Signs Temp 36.3 C 11/01/19 07:25 Pulse 78 11/01/19 07:25 Resp 16 11/01/19 07:25 BP 129/74 11/01/19 07:25 Pulse Ox 95 11/01/19 07:25 - RESPIRATORY Respiratory Status: Respiratory Rate WNL, Airway Patent, O2 Saturation Stable, Supplemental Oxygen - CARDIOVASCULAR CV Status: Pulse Rate WNL, Blood Pressure Stable - GASTROINTESTINAL GI Status: No Symptoms - PAIN Pain Score: 0 - POST OP HYDRATION Hydration Status: Adequate & Stable - OBSERVATIONS Free Text/Narrative:: no anesthesia complications noted
--- NOTE | 2019-11-01 10:42 | PCM.OPNOTE ---
- General Post-Op/Procedure Note Date of Surgery/Procedure: 11/01/19 Operative Procedure(s): Total vaginal hysterectomy with bilateral salpingo- oophorectomy, anterior and posterior vaginal repair with perineoplasty Findings: Grade 3 cystocele, grade 2 rectocele, grade 2 uterine descensus. Pre Op Diagnosis: 1. Grade 3 cystocele. 2. Grade 2 rectocele. 3. Grade 2 uterine prolapse/descensus. 3. Potential for de cristiano stress urinary incontinence with repair. Post-Op Diagnosis: Same Anesthesia Technique: General ET Tube Other Anesthesia Type: Local anesthesia with lidocaine 1% with epineph rineapproximately 30 cc tot Primary Surgeon: Prakash Alicea Secondary Surgeon: Walker Jorge Anesthesia Provider: Deion Mejia Cutter Operator: Emerald Mendoza Reason Cutter Operator Was Necessary: Assistance, retraction, patient safety, quality of care. Pathology: Uterus, tubes and ovaries in 1 specimen container. Fluid Replacement, Intraop: 1,500 Output, Urine Amount: 75 EBL in mLs: 35 Drain/Tube Comments:: Indwelling bladder catheter Complications: Advertent entry into the bladder with the fashion mid urethral sling trocar Condition: Good Free Text/Narrative:: Intake & Output 10/31/19 11/01/19 11/01/19 22:59 06:59 14:59 Output Total 75 Balance -75 Surgery duration: 99 minutes Procedure: The patient was placed in supine position on the operating table. She received 2 g of Ancef preoperatively for infection prophylaxis and had sequential compression stockings in place for DVT prophylaxis. General endotracheal anesthesia was accomplished. After positioning, and adequate prep and drape, the procedure was then performed. Sterile speculum was placed in the vagina and cervix was visualized. Cervix was injected with [lidocaine quarter percent with epinephrine]. [20 cc] used. A full circumference incision was made in the cervical epithelium. The bladder was pushed well back off cervix. Posterior cul-de-sac was then entered sharply without problems. Left uterosacral was crossclamped with a Enseal vessel closure system. The left uterosacral and then the right uterosacral ligament pedicles were developed using the Enseal system. The anterior cul-de-sac was then entered without problems and the uterine vasculature, cardinal ligament and broad ligament then developed using Enseal vessel closure system. The uterus was inverted at this time and upper broad ligament fallopian tube pedicles were crossclamped with David clamps. Specimen was totally removed. Left and right fallopian tube was normal but atrophic in appearance secondary to menopause. Using the vessel closure system each of the tubes was then removed and sent with the specimen. Ovaries removed in similar fashion bilaterally all specimens were sent in separate container. The patient was found to be hemostatically intact at this time. Her vaginal cuff was run with a 0 Monocryl suture from left side to right side.. Anterior vaginal repair was performed in the routine fashion. The midline epithelium was grasped approximately 2 cm from the urethral meatus. The ep ithelium at the vaginal cuff after removal of the uterus was grasped 2 with Allis clamps. The epithelium was infiltrated with lidocaine quarter percent with epinephrine approximately 10 mL. Midline incision was made in the epithelium was dissected off the underlying support tissue. The vesicovaginal fascia that remained was then reapproximated midline with approximately 5 trapazoidal type sutures of 0 Monocryl. This effectively reduced the cystocele. Excess epithelium was removed on each side sharply and the epithelium was reapproximated using 3-0 Monocryl a short running suture. At this time the vaginal cuff was closed anteriorly to posteriorly. Patient's bladder was again drained with a red rubber catheter. 35 mL normal urine was removed. The epithelium overlying the urethra was grasped approximately 1 cm from the urethral meatus and approximately 2 cm cephalad from there with Allis clamps. The area of the skin overlying the medial aspect of the obturator foramen on each side just posterior to the origin the abductor longus muscle was marked with a marking pen. These 2 areas and the sub-fascial layer of the vaginal were then infiltrated with lidocaine quarter percent with epine phrinetotal of approximately 10 mL was used. incisions made in the epithelium overlying the urethra and 2 small stab wounds 3 mm in length were made in the 2 areas of the panty line of the patient. The subfascial planes and adequately dissected bilaterally to allow placement of the mesh. The helical adapter was then placed through the obturator on patient's left side brought out through the vaginal subfascial plane. With the first trocar inadvertent entrance was made into the bladder as evidenced by a small amount of urine. The trocar was moved and the decision was made to abort the subfascial mid urethral mesh placement as it was a prophylactic mesh placement in nature. The midline epithelium was closed with a short running suture of 3-0 Monocryl. Skin incisions were closed with Dermabond skin glue. Posterior repair was then performed.The uppermost portion of the rectocele was identified and was grasped midline with an Allis clamp. The introital area was grasped at approximately the 4:00 and 8:00 positions at the junction of the vaginal and vulvar epithelium. The area of epithelium was then infiltrated with lidocaine quarter percent with epinephrine. A justin-shaped piece of epithelium was removed from the posterior introital and perineal area. The vaginal epithelium was then undermined superiorly to the top of the rectocele. Was then incised midline. With sharp and blunt dissection the epithelium was then dissected off of the underlying vesicovaginal fascia. At this point approximately 4 sutures of 0 Monocryl were placed to reapproximate the lateral supportive tissue midline and reduce the rectocele. The excess epithelium was then excised and the epithelium overlying the rectocele repair was then reapproximated with a running suture of 3-0 Monocryl. Perineoplasty was performed using 4 V-type stitches of 0 Monocryl. This lengthened the perineal body and the vagina. Also change the angle of vagina. At this point the epithelium over the perineum was closed in an episiotomy fashion using the 3-0 Monocryl suture. Patient was returned to supine position and awakened from general endotracheal anesthesia. She tolerated the procedure was then left the operating room in satisfactory condition.
[2019-11-01] MEDS ORDERED: Lactated Ringers 1,000 ML IV SCH (10:45)
[2019-11-01] MEDS ORDERED: Ibuprofen 400 MG Tab PO PRN (14:00)
[2019-11-01] MEDS: Acetaminophen/Codeine 300-30 MG Tab PO PRN (20:39)
[2019-11-01] MEDS: Docusate Sodium 100 MG Cap PO SCH (20:41)
--- NOTE | 2019-11-02 08:04 | PCM48HPAN ---
Post Anesthesia Note - EVALUATION WITHIN 48HRS OF ANESTHETIC Vital Signs in Normal Range: Yes Patient Participated in Evaluation: Yes Respiratory Function Stable: Yes Airway Patent: Yes Cardiovascular Function Stable: Yes Hydration Status Stable: Yes Pain Control Satisfactory: Yes Nausea and Vomiting Control Satisfactory: Yes Mental Status Recovered: Yes Vital Signs: Last Vital Signs Temp 97.5 F 11/02/19 04:06 Pulse 63 11/02/19 04:06 Resp 18 11/02/19 04:06 BP 130/63 11/02/19 04:06 Pulse Ox 96 11/02/19 04:06 - COMMENTS/OBSERVATIONS Free Text/Narrative:: Patient on her postoperative day 1. No anesthesia complications noted. Denies any nausea, pain is /10 . Butler catheter indwelling, patient is going to be discharged home with it.
[2019-11-02] MEDS: Docusate Sodium 100 MG Cap PO SCH (08:39)
[2019-11-02] MEDS: Acetaminophen/Codeine 300-30 MG Tab PO PRN (08:43)
[2019-11-02] MEDS ORDERED: Chlorthalidone 25 MG Tab PO SCH (09:00)
[2019-11-02] MEDS ORDERED: Multivitamins,Therapeutic Tab PO SCH (09:00)
[2019-11-02] MEDS ORDERED: Cyanocobalamin (Vitamin B12) 1,000 MCG Tab PO SCH (09:00)
[2019-11-02] MEDS ORDERED: Cholecalciferol (Vitamin D3) 5,000 UNIT Tab PO SCH (09:00)
[2019-11-02] MEDS ORDERED: TURMERIC 400 MG PO SCH (09:00)
[2019-11-02] MEDS ORDERED: Non-Formulary Medication 1 Each (Ubidecarenone 100 MG) PO SCH (09:00)
[2019-11-02] MEDS ORDERED: amLODIPine 5 MG Tab PO SCH (09:00)
--- NOTE | 2019-11-02 09:42 | PCM.DCSUM1 ---
Discharge Summary - Hospital Course Free Text/Narrative:: Admission diagnosis: 1. Grade 3 cystocele. 2. Grade 2 rectocele. 3. Grade 2 uterine prolapse. 4. Potential for de cristiano stress urinary incontinence with cystocele repair. Operation performed total vaginal hysterectomy with bilateral salpingo-oophorectomy, anterior and posterior vaginal repair with perineoplasty done on 11/01/2019.. Complications: Inadvertent entrance into the bladder with trocar used for subfascial mid urethral sling resulting in a small 1 2 millimeter rent in the bladder.. Diagnosis: Stroke: No - Discharge Data Discharge Date: 11/02/19 Discharge Disposition: Home, Self-Care 01 Condition: Good - Referral to Home Health Primary Care Physician: Tracy Mcclendon MD - Patient Summary/Data Operative Procedure(s) Performed: Total vaginal hysterectomy with bilateral salpingo-oophorectomy, anterior and posterior vaginal repair with perineoplasty - Patient Instructions Diet: Regular Diet as Tolerated (Fiber diet and push fluids.) Activity: As Tolerated (Do not place anything in the vagina. No lifting greater than 15 pounds x 1 week. No driving a car x1 week.) Driving: Do Not Drive Showering/Bathing: May Shower Notify Provider of: Fever, Increased Pain, Nausea and/or Vomiting - Discharge Plan Home Medications: Home Meds Aspirin 81 mg PO DAILY 10/31/19 [History] Chlorthalidone 12.5 mg PO DAILY 10/31/19 [History] Cholecalciferol (Vitamin D3) [Vitamin D3] 5,000 unit PO DAILY 10/31/19 [History] Cyanocobalamin (Vitamin B-12) [Vitamin B-12] 1,000 mcg PO DAILY 10/31/19 [History] Multivit-Min/Iron/Folic/Nsk952 [Hair, Skin and Nails Tablet] 1 tab PO DAILY 10/31/19 [History] Turmeric 400 mg PO DAILY 10/31/19 [History] Ubidecarenone [Coq-10] 100 mg PO DAILY 10/31/19 [History] amLODIPine [Norvasc] 5 mg PO DAILY 10/31/19 [History] estradioL [Estrace 0.01% Vaginal Crm] 1 dose VAG ASDIRECTED 10/31/19 [History] Acetaminophen/Codeine [Tylenol with Codeine No.3 300MG/30MG] 1 - 2 tab PO Q6H PRN tablet 11/02/19 [Rx] Patient Handouts: Indwelling Urinary Catheter Care, Adult, Indwelling Urinary Catheter Care, Adult, [id number], Indwelling Urinary Catheter Insertion, Care After Referrals: Prakash Alicea MD [Physician] - (Thursday11/08/2019 Make appointment at clinic.) - Discharge Summary/Plan Comment DC Time >30 min.: No Discharge Summary/Plan Comment: Discharge instructions: 1. Discharge home 2. Diet, activity and follow-up discussed with patient. 3. Precautions given concern increased pain, bleeding, temperature, signs/symptoms of DVT/PE. 4. Medications per home medication was printed, discussed with and given to the patient. 5. Return to clinic-Dr. Alicea[facility] in 1 week. 6. Will keep the catheter in. Patient to be instructed as to catheter care and problems to watch for. Diagnosis: Pelvic relaxation as per HPI. Condition: Good - Patient Data Vitals - Most Recent: Last Vital Signs Temp 36.6 C 11/02/19 08:17 Pulse 58 L 11/02/19 08:37 Resp 20 11/02/19 08:17 BP 135/61 11/02/19 08:38 Pulse Ox 94 L 11/02/19 08:37 Weight - Most Recent: 67.222 kg I&O - Last 24 hours: Intake & Output 11/01/19 11/02/19 11/02/19 22:59 06:59 14:59 Intake Total 1220 600 Output Total 500 1600 Balance 720 -1000 Med Orders - Current: Current Medications Acetaminophen/Codeine Phosphate (Tylenol With Codeine No.3 300mg/30mg) 1 - 2 tab PO Q6H PRN PRN Reason: Pain (moderate 4-6) Last Admin: 11/02/19 08:43 Dose: 2 tab Documented by: Amlodipine Besylate (Norvasc) 5 mg PO DAILY [facility] Last Admin: 11/02/19 08:38 Dose: 5 mg Documented by: Chlorthalidone (Chlorthalidone) 12.5 mg PO DAILY [facility] Last Admin: 11/02/19 08:42 Dose: 12.5 mg Documented by: Cholecalciferol (Vitamin D3) 5,000 unit PO DAILY [facility] Last Admin: 11/02/19 08:41 Dose: Not Given Documented by: Cyanocobalamin (Vitamin B12) 1,000 mcg PO DAILY [facility] Last Admin: 11/02/19 08:39 Dose: Not Given Documented by: Docusate Sodium (Colace) 100 mg PO BID [facility] Last Admin: 11/02/19 08:39 Dose: 100 mg Documented by: Ibuprofen (Motrin) 400 mg PO Q6H PRN PRN Reason: Pain (mild 1-3) Multivitamins (Thera) 1 each PO DAILY [facility] Last Admin: 11/02/19 08:41 Dose: Not Given Documented by: Ondansetron HCl (Zofran) 4 mg IVPUSH Q4H PRN PRN Reason: Nausea/Vomiting Discontinued Medications Dexamethasone (Dexamethasone) Confirm Administered Dose 20 mg .ROUTE .STK-MED ONE Stop: 11/01/19 09:18 Fentanyl (Sublimaze) Confirm Administered Dose 250 mcg .ROUTE .STK-MED ONE Stop: 11/01/19 08:07 Fentanyl (Sublimaze) 50 mcg IVPUSH Q5M PRN PRN Reason: Pain Hydromorphone HCl (Dilaudid) Confirm Administered Dose 1 mg .ROUTE .STK-MED ONE Stop: 11/01/19 08:50 Lactated Ringer's (Ringers, Lactated) 1,000 mls @ 125 mls/hr IV ASDIRECTED [facility] Stop: 11/01/19 23:00 Last Admin: 11/01/19 07:40 Dose: 125 mls/hr Documented by: Lidocaine HCl (Xylocaine-Mpf 1%) Confirm Administered Dose 4 mls @ as directed .ROUTE .STK-MED ONE Stop: 11/01/19 08:08 Lactated Ringer's (Ringers, Lactated) Confirm Administered Dose 1,000 mls @ as directed .ROUTE .STK-MED ONE Stop: 11/01/19 09:20 Lactated Ringer's (Ringers, Lactated) 1,000 mls @ 125 mls/hr IV ASDIRECTED [facility] Ketorolac Tromethamine (Toradol) Confirm Administered Dose 30 mg .ROUTE .STK-MED ONE Stop: 11/01/19 08:08 Lidocaine/Epinephrine (Xylocaine 1% With Epinephrine 1:100,000) Confirm Administered Dose 20 ml .ROUTE .STK-MED ONE Stop: 11/01/19 07:26 Last Admin: 11/01/19 08:56 Dose: 37.5 ml Documented by: Lidocaine/Sodium Bicarbonate (Buffered Lidocaine 1% In Ns 8.4%) 0.25 ml IDERM ONETIME PRN PRN Reason: Prior to IV Start Stop: 11/01/19 18:00 Last Admin: 11/01/19 07:39 Dose: 0.25 ml Documented by: Non-Formulary Medication (Turmeric [Turmeric]) 400 mg PO DAILY [facility] Non-Formulary Medication (Ubidecarenone) 100 mg PO DAILY [facility] Ondansetron HCl (Zofran) Confirm Administered Dose 4 mg .ROUTE .STK-MED ONE Stop: 11/01/19 08:06 Oxycodone/Acetaminophen (Percocet 325-5 Mg) 1 tab PO Q4H PRN PRN Reason: Pain (moderate 4-6) Propofol (Diprivan 20 Ml) Confirm Administered Dose 200 mg .ROUTE .STK-MED ONE Stop: 11/01/19 08:07 Rocuronium Fletcher (Zemuron) Confirm Administered Dose 50 mg .ROUTE .STK-MED ONE Stop: 11/01/19 08:06 Sodium Chloride (Saline Flush) 10 ml FLUSH ASDIRECTED PRN PRN Reason: Keep Vein Open Stop: 11/01/19 18:00 Sodium Chloride (Normal Saline) Confirm Administered Dose 50 ml .ROUTE .STK-MED ONE Stop: 11/01/19 07:27 Last Admin: 11/01/19 08:56 Dose: 12.5 ml Documented by:
[2019-11-02 11:20] VITALS: BP 122/57; PULSE 62
== END 2019-11-02 12:39 | disposition home or self-care (01) ==
LOC: JD.SDS 07:20 → JD.MS 10:29
PROVIDERS: ADMIT Obstetrics & Gynecology; ATTEND Obstetrics & Gynecology
DX: D25.9 Leiomyoma of uterus, unspecified (principal); N81.2 Incomplete uterovaginal prolapse; N72 Inflammatory disease of cervix uteri; N84.0 Polyp of corpus uteri; N80.0 Endometriosis of uterus; N83.312 Acquired atrophy of left ovary; N83.311 Acquired atrophy of right ovary; I10 Essential (primary) hypertension; E78.5 Hyperlipidemia, unspecified; E55.9 Vitamin D deficiency, unspecified; R05 Cough; E03.9 Hypothyroidism, unspecified; Z86.73 Personal history of transient ischemic attack (TIA), and cerebral infarction without residual deficits; Z01.812 Encounter for preprocedural laboratory examination; Z20.828 Contact with and (suspected) exposure to other viral communicable diseases; Z79.82 Long term (current) use of aspirin; Z79.899 Other long term (current) drug therapy
CPT/HCPCS: 36415; 57260; 58262; 86850; 86900; 86901; A9270; G0378; J1100; J1170; J1885; J2001; J2405; J2704; J3010; J7120; U0002; 00944; 88305; C1771

== ENCOUNTER 2022-10-10 09:09 | Emergency (ER) | payer MEDICARE, OTHER ==
[2022-10-10 09:43] LABS: BASOPHILS ABSOLUTE AUTO 0.02 K/mm3 (0.01-0.08); BASOPHILS PERCENT AUTO 0.2 % (0.1-1.2); EOSINOPHILS ABSOLUTE AUTO 0.08 K/mm3 (0.04-0.36); EOSINOPHILS PERCENT AUTO 0.9 (0.7-5.8); IMMATURE GRAN ABSOLUTE AUTO 0.03 K/mm3 (0.00-0.10); IMMATURE GRAN PERCENT AUTO 0.4 % (<=1.0); LYMPHOCYTES ABSOLUTE AUTO 1.93 K/mm3 (1.18-3.74); LYMPHOCYTES PERCENT AUTO 22.6 % (19.3-51.7); MEAN CORPUSCULAR HEMOGLOBIN 34.5 pg (25.6-32.2); MEAN CORPUSCULAR HGB CONC 33.3 g/dl (32.2-35.5); MEAN CORPUSCULAR VOLUME 103.4 fl (79.4-94.8); MEAN PLATELET VOLUME 9.8 fl (9.4-12.3); MONOCYTES ABSOLUTE AUTO 0.79 K/mm3 (0.24-0.36); MONOCYTES PERCENT AUTO 9.3 % (4.7-12.5); NEUTROPHILS ABSOLUTE AUTO 5.69 K/mm3 (1.56-6.13); NEUTROPHILS PERCENT AUTO 66.6 % (34.0-71.1); PLATELET COUNT,PLT 307 K/mm3 (182-369); RED BLOOD CELL COUNT 4.35 M/mm3 (3.98-5.22); WHITE BLOOD CELL COUNT,WBC 8.54 K/mm3 (3.98-10.04)
[2022-10-10] MEDS ORDERED: Aspirin 81 MG Tab.Chew PO ONE (10:00)
[2022-10-10 10:04] LABS: INR 1.31; PROTHROMBIN TIME 13.7 SECONDS (9.7-12.0)
[2022-10-10 10:06] LABS: PTT,PARTIAL THROMBOPLSTIN TIME 30.7 SECONDS (21.7-31.4)
[2022-10-10 10:09] LABS: A/G RATIO 0.8 (1-2); ALBUMIN 3.8 g/dl (3.4-5.0); ANION GAP 11.1 (5-15); BILIRUBIN TOTAL 0.4 mg/dL (0.2-1.0); BUN/CREATININE RATIO 17.8 (14-18); CALCIUM 9.3 mg/dL (8.5-10.1); CREATININE 0.9 mg/dL (0.55-1.02); EST CRCL DRUG DOSING (CG) 38.25 mL/min; POTASSIUM,K 4.1 mEq/L (3.5-5.1); PROTEIN TOTAL,TP 8.3 g/dl (6.4-8.2)
[2022-10-10] MEDS ORDERED: Sodium Chloride 0.9% 1,000 ML IV SCH (10:15)
[2022-10-10] MEDS: Nitroglycerin 0.4 MG Tab.SL SL PRN ×2 (10:23→10:30)
[2022-10-10] MEDS ORDERED: fentaNYL 100 MCG/2 ML SDV IVPUSH ONE (10:51)
[2022-10-10] MEDS ORDERED: Sodium Chloride 0.9% 10 ML Syringe FLUSH ONE (12:51)
[2022-10-10] MEDS ORDERED: Iopamidol 755 Mg/ML 100 ML Bottle IVPUSH ONE (12:52)
[2022-10-10] MEDS: Iopamidol 755 Mg/ML 100 ML Bottle IVPUSH ONE ×2 (12:52→12:53)
[2022-10-10] MEDS ORDERED: Sodium Chloride 0.9% 100 ML IV SCH (13:00)
[2022-10-10 15:34] VITALS: BP 134/85; PULSE 78
== END 2022-10-10 15:20 | disposition home or self-care (01) ==
LOC: JD.ED 09:09
DX: I31.9 Disease of pericardium, unspecified (principal); E78.00 Pure hypercholesterolemia, unspecified; I10 Essential (primary) hypertension; I25.2 Old myocardial infarction; E03.9 Hypothyroidism, unspecified; Z88.8 Allergy status to other drugs, medicaments and biological substances; Z79.01 Long term (current) use of anticoagulants; Z79.899 Other long term (current) drug therapy; Z86.73 Personal history of transient ischemic attack (TIA), and cerebral infarction without residual deficits
CPT/HCPCS: 36415; 71045; 71275; 80053; 83735; 84484; 85025; 85610; 85652; 85730; 86140; 96374; 99285; A9270; J3010; J3490; J7030; Q9967; 93010; 99284